=== PATIENT | female | born 1935 | race Caucasian/White ===

== ENCOUNTER 2017-01-23 07:25 | Emergency (ER) | payer MEDICARE ==
[~2017-01-23 07:25] MED LIST: ASPIRIN ADULT L81 M1 PO; BETAPACE80 MG PO; CALCIUM + D3 E1 EACH PO; CARDIZEM CD240 MG PO; COUMADIN3 M1 PO; CRESTOR5 MG PO; ECOTRIN ADULT L81 MG; ECOTRIN81 MG; HIGH POTENCY I134 MG PO; HYDROCODONE BIT1 T11 PO; LATANOPROST2.5 ML OP; Lovenox60 MG/0.6 SC; MOTRIN400 MG PO; PROTONIX40 MG PO; TOPROL XL25 MG; TOPROL XL25 MG PO; TOPROL XL50 MG; TOPROL XL50 MG PO; VITAMIN D50000 I2 PO; WARFARIN SOD5 MG PO; XARE20MG PO; XARELTO10 PO; XARELTO15 M1 PO; ZETIA10 MG; ZETIA10 MG PO
[2017-01-23 08:35] LABS: BASO % 0.3 % (0.0-1.0); EOS # 0.1 10*3/uL (0.0-0.4); HEMATOCRIT 38.1 % (37.0-47.0); HEMOGLOBIN 12.5 g/dl (12.0-16.0); LYMPH # 1.3 10*3/uL (1.3-4.4); LYMPH % 20.7 % (27.0-41.0); MEAN CELL VOLUME 89.6 fl (81.0-99.0); MEAN CORPUSCULAR HGB 29.4 pg (27.0-31.0); MEAN CORPUSCULAR HGB CONC 32.8 g/dl (33.0-37.0); MEAN PLATELET VOLUME 10.8 fl (9.6-12.3); MONO # 0.5 10*3/uL (0.1-1.0); MONO % 8.6 % (3.0-9.0); NEUT # 4.2 10*3/uL (2.3-7.9); NEUT % 69.1 % (47.0-73.0); PLATELET COUNT AUTOMATED 232 10*3/uL (130-400); RED BLOOD COUNT 4.25 10*6/uL (4.10-5.10); RED CELL DISTRI WIDTH 12.9 % (0-14.5)
[2017-01-23] MEDS ORDERED: KEFLEX500 M1 PO (08:51)
== END 2017-01-23 08:56 | disposition home or self-care (01) ==
LOC: ED 07:25
PROVIDERS: Emergency Medicine
DX: R04.0 Epistaxis (principal); I48.91 Unspecified atrial fibrillation; Z91.041 Radiographic dye allergy status; Z79.899 Other long term (current) drug therapy

== ENCOUNTER 2017-05-18 23:53 | Inpatient (IN) | payer MEDICARE ==
[~2017-05-18] VITALS: Ht 167.6 cm; Wt 58.6 kg
--- NOTE | ~2017-05-18 | PR ---
[place], [place] PROGRESS NOTE NAME: MARI OLGUIN [facility] #: [id number] UNIT #: [id number] ROOM: 406 DOCTOR: EDILBERTO MARTELL MD BIRTHDATE: [birth year] DOS: 05/20/2017 SUBJECTIVE: The patient developed acute onset of shortness of breath during the night, became hypoxic, was given 1 dose of Lasix IV 80 mg. She has diuresed nicely. She does complain of continued shortness of breath, abdominal pain and dizziness. OBJECTIVE: VITAL SIGNS: Pressure is 111/69, pulse of 108, respirations 16, temperature 98.0. LUNGS: Diminished breath sounds. HEART: Irregular. ABDOMEN: Soft, scaphoid, nontender. EXTREMITIES: Without any edema. ASSESSMENT AND PLAN: 1. Dizziness with abdominal pain, most likely from underlying severe aortic stenosis. Echocardiogram will be ordered. Discussed with Dr. Beach. If it is critical, the patient will benefit from a cardiac catheterization. Dr. Beach to read the echocardiogram today. 2. Bilateral pleural effusions with acute diastolic congestive heart failure. Again, Lasix was given. The patient to undergo a CT of the chest and abdomen this morning. 3. Chronic atrial fibrillation, controlled on Cardizem. Extra dose of metoprolol was given and she is also on Xarelto, which is continued. Noted the abnormal SGOT, again CT of the abdomen will be done, this could be just a hepatic venous congestion from congestive heart failure. EDILBERTO MARTELL MD CM:PNTRANS 4 [phone] EDILBERTO MARTELL MD 05/20/17899 interface
--- NOTE | ~2017-05-18 | CON ---
[place], [place] RE[facility]ATION [id number] UNIT #: [id number] ROOM: 406 DOCTOR: NELIDA VICTORIA MD BIRTHDATE: [birth year] DOS: 05/20/2017 HISTORY OF PRESENT ILLNESS: This is an 81-year-old -French woman with a history of paroxysmal atrial fibrillation, essential hypertension, hyperlipidemia and some degree of aortic stenosis, who has had GERD as well. She has never had a stroke, heart failure, heart attack and does not remember having had any coronary stents or heart cath. She had come to the hospital because of chest pain, but mostly palpitations. Her heart was beating very fast and she became very weak. She did not have any undue shortness of breath. There was no dizziness or loss of consciousness. She has not had any swelling of the lower extremities recently. She does not have any neurological symptoms, i.e., no symptoms of a stroke. She does not smoke nor does she drink alcoholic beverages. HOME MEDICATIONS: Include Xalatan eyedrops, calcium carbonate, diltiazem 240 daily, ranitidine 150 b.i.d., Xarelto 15 mg daily, simvastatin 5 mg at bedtime and sotalol 40 mg b.i.d. PHYSICAL EXAMINATION: GENERAL: The patient is very pleasant, alert, oriented. VITAL SIGNS: Pulses are now regular at 76 beats per minute, blood pressure 92/73. Previously, she had atrial fibrillation with rapid rate. NECK: Normal JVP. There is a fairly loud left carotid bruit. HEART: Cardiac auscultation, no murmurs or rubs. There is no cardiomegaly. Pedal pulses are palpable, although of somewhat small volume. RESPIRATORY: She is not tachypneic. There is dullness in the right base with reduced adventitious sounds. There are a few crackles in the left lower zone. Chest x-ray demonstrated bilateral pleural effusions, greater on the right side. Troponin I is 0.027 and 0.026 and then 0.05. BUN 16, creatinine 0.81, potassium 4.3. An ECG showed atrial fibrillation with rapid ventricular rate, and left bundle branch block. Monitor now shows sinus rhythm at about 60 beats per minute. IMPRESSION: 1. Paroxysmal atrial fibrillation. She finally returned to normal sinus rhythm. She was on 40 of Betapace b.i.d. It is being increased to 80 mg b.i.d. Her QT interval appears to be okay. 2. There is no clinical evidence of heart failure. 3. She has had chest pain. Left bundle branch is present. It is not clear if she has any underlying coronary artery disease. Dr. Beach had left instruction to have this patient ready for left heart catheterization at [facility] on Tuesday. [place], [place] REPORT OF CONSULTATION NAME: MARI OLGUIN UNIT #: [id number] ROOM: [facility] DOCTOR: NELIDA VICTORIA MD BIRTHDATE: [birth year] RECOMMENDATIONS: Hold Xarelto and increase sotalol to 80 mg b.i.d. I thank you on behalf of Dr. Beach for this consult. NELIDA VICTORIA MD CM:CONSTR:REPORT OF CONSULTATION 1757 05/21/17 0307 interface
--- NOTE | ~2017-05-18 | WRIGHTHP ---
[place], [place] PATIENT HISTORY AND PHYSICAL EXAM NAME: MARI OLGUIN [facility] #: [id number] UNIT #: [id number] ROOM: 406 DOCTOR: HAYLEE VILLASENOR MD BIRTHDATE: [birth year] DOS: 05/19/2017 HISTORY OF PRESENT ILLNESS: 1. The patient is an 81-year-old female with a past medical history of chronic atrial fibrillation, anticoagulated with Xarelto. 2. Benign essential hypertension. 3. Mixed hyperlipidemia. 4. Moderate aortic stenosis. 5. History of colonoscopy with tubular adenoma with low-grade dysplasia in 2014. HOME MEDICATIONS: Xarelto, diltiazem, sotalol, vitamin D, Crestor, latanoprost eye drops. The patient presented to the Emergency Department with dizziness, recurrent chest pain and palpitations. The patient was initially evaluated in the Emergency Department and she was tachycardic. The patient was given intravenous diltiazem, which reduced her heart rate to below 100 beats per minute. The patient was 135 beats per minute in the Emergency Department. After admission, the patient's chest pain have resolved, her cardiac enzymes have been negative and heart rate has improved. The patient is still waiting for her furniture mover driver, Dr. Beach, to see her before we can decide about her future course of treatment. REVIEW OF SYSTEMS: LUNGS: No wheezing or shortness of breath. GASTROINTESTINAL: No nausea, vomiting, diarrhea or constipation. CARDIOVASCULAR: Recurrent chest pain, which have resolved now and palpitations. FAMILY HISTORY: Noncontributory. ALLERGIES: Known allergies to IODINE DYE. PHYSICAL EXAMINATION: GENERAL: Alert and oriented x3, in no visible distress. HEENT AND NECK: Extraocular movements are intact. Sclerae are anicteric. Oral mucosa is moist and clean. No obvious facial weakness. Neck is supple without any lymphadenopathy. No thyromegaly. No JVD. No carotid arterial bruits. LUNGS: Clear to auscultation. No wheezing. No rhonchi. CARDIOVASCULAR SYSTEM: Heart rate was irregularly irregular in rate and rhythm. ABDOMEN: Soft, nontender. No obvious organomegaly. Bowel sounds are present. No obvious herniation. EXTREMITIES: Without significant cyanosis or edema. Warm to touch. CENTRAL NERVOUS SYSTEM: Alert and oriented x3. Cranial nerves II-XII are intact. Speech is normal. The patient is able to move all extremities. Normal muscle strength. Deep tendon reflexes are equal on both sides. Plantars were downgoing. LABORATORY DATA: Cardiac enzymes x3 were negative. Normal serum electrolytes. DICTATION ENDS HERE. [place], [place] PATIENT HISTORY AND PHYSICAL EXAM NAME: MARI OLGUIN UNIT #: [id number] ROOM: [facility] DOCTOR: HAYLEE VILLASENOR MD BIRTHDATE: [birth year] HAYLEE VILLASENOR MD CM:HISPHYS:PATIENT HISTORY AND PHYSICAL EXAMINATION [id number] HAYLEE VILLASENOR MD 05/19/17 2001 interface
--- NOTE | ~2017-05-18 | PR ---
[place], [place] PROGRESS NOTE NAME: MARI OLGUIN UNIT #: [id number] ROOM: [facility] DOCTOR: ALON HOOPER MD, FACC BIRTHDATE: [birth year] DOS: 05/21/2017 CARDIOLOGY PROGRESS NOTE COVERING FOR: Dr. Beach. SUBJECTIVE: The patient did become hypotensive and bradycardia, and ER asked me to advice appropriately. I came and saw the patient. Her blood pressure at one point is 80/46 with a heart rate of 45 and persistently low, hence we cut back on the beta blockers and calcium-channel blockers, and then gave 500 mL bottles and two 250 mL bottles of normal saline, and then at 60 mL an hour. Advised the patient to drink a lot of fluids. The patient came in with left bundle which appears to be chronic and her rapid ventricular response with atrial fibrillation. Her ST changes could be related to myocardial ischemia, her tachycardia secondary to bundle-branch block. The patient came into the emergency room with chest pain progressively increasing and crescendo in nature, and Dr. Paredes has seen the patient for consult for Dr. Beach, and underlying coronary artery disease and ____ the patient to undergo coronary artery, if possible, revascularization on Tuesday, this is Tuesday. Potassium was 3.1 and getting the potassium supplements and calcium is 8. PHYSICAL EXAMINATION: NECK: No jugular venous distension. LUNGS: No rales. HEART: S1 and S2, irregularly irregular. Heart rate is about 50. ABDOMEN: Soft. Color is good. Not diaphoretic. No cyanosis. IMPRESSION: Atrial fibrillation with rapid ventricular response, now bradycardic. Extreme tachy-bradycardia is concerned and evaluation of underlying coronary artery disease if it is related that. Once it is corrected, heart rate may stabilize. Otherwise, one would pay consideration into ____ with extreme tachy-bradycardia with paroxysmal atrial fibrillation. The patient is stable at this time with IV fluids and adjustment of medications. I am seeing this patient for cardiology consult. [place], [place] PROGRESS NOTE NAME: MARI OLGUIN UNIT #: [id number] ROOM: [facility] DOCTOR: ALON HOOPER MD, FACC BIRTHDATE: [birth year] ALON HOOPER MD CM:PNTRANS [phone] ALON HOOPER MD [facility] 05/23/17 1007 interface
--- NOTE | ~2017-05-18 | PR ---
[place], [place] PROGRESS NOTE NAME: MARI OLGUIN UNIT #: [id number] ROOM: 406 DOCTOR: EDILBERTO MARTELL MD BIRTHDATE: [birth year] DOS: 05/21/2017 SUBJECTIVE: The patient is doing fine without any complaints this morning. She did develop some bradycardia during the night and the sotalol and the metoprolol were held. She feels better, but does feel like she still has some chest congestion, coughs up small amounts of white mucus. OBJECTIVE: VITAL SIGNS: Graphic trend shows pressure 198/50, pulse of 59, respirations 16, temperature 97.7. LUNGS: Diminished breath sounds. HEART: Irregular. ABDOMEN: Soft, scaphoid. EXTREMITIES: Without any edema. LABORATORY DATA: Shows glucose of 88, BUN 13, creatinine 0.64. Electrolytes show sodium 137, potassium 3.1, chloride 98, bicarbonate 29. ASSESSMENT AND PLAN: The CT of the chest shows pleural effusions, moderate size with congestive heart failure, spiculated density was noticed on the right upper lobe. This again could be atelectasis. Repeat the CT scan advised in 6 weeks. Echocardiogram shows aortic stenosis, TR, MR and ejection fraction of 20%. ASSESSMENT AND PLAN: 1. Cardiomyopathy with Acute systolic CHF, this could be related to atrial fibrillation with rapid ventricular response, but valvular pathology and coronary artery disease, needs to be ruled out. The patient will go for cardiac catheterization on Tuesday morning, so right now, the patient remains on ERI inhibitors and diuretics, which are being continued. 2. Chronic atrial fibrillation. The Xarelto has been discontinued for the pending procedure. The patient's rate has been controlled and is now on the bradycardic side, so medications are being held sotalol to be decreased, Cardiology following. 3. Bilateral pleural effusions from the underlying CHF. Again, on diuretics. These effusions do not appear to be large enough to have a thoracentesis performed. 4. Spiculated density in the right fissure upper lobe. This again could be atelectasis discussed with the patient's brother, will repeat the CT scan in a few months to see. [place], [place] PROGRESS NOTE NAME: MARI OLGUIN UNIT #: [id number] ROOM: 406 DOCTOR: EDILBERTO MARTELL MD BIRTHDATE: [birth year] EDILBERTO MARTELL MD CM:PNTRANS [phone] EDILBERTO MARTELL MD 05/21/17 1104 interface
--- NOTE | ~2017-05-18 | PR ---
[place], [place] PROGRESS NOTE [id number] #: [id number] ROOM: [facility] DOCTOR: EDILBERTO MARTELL MD BIRTHDATE: [birth year] DOS: SUBJECTIVE: The patient was moved to the ICU during the night when she became hypotensive, was given 2 boluses of 250 mL of saline. This morning, the patient is awake and alert and oriented, without any complaints. She does not have any dizziness or lightheadedness, she is pretty much at her baseline. OBJECTIVE: GENERAL: Graphic trend shows that she is warm and dry. VITAL SIGNS: Blood pressure is 113/53, pulse of 50, respirations 19, temperature 97.9. LUNGS: Diminished breath sounds, few rales heard at the bases. HEART: Irregular. ABDOMEN: Soft, scaphoid. EXTREMITIES: Without any edema. ASSESSMENT AND PLAN: 1. Hypotension, possibly iatrogenic from multiple medications that she is on. We will hold off on the meds and IV fluids were given. 2. Hypokalemia. Yesterday supplementation was given. Labs will be ordered for later today. 3. Chronic atrial fibrillation. Heart rate is controlled on the low side, Xarelto on hold. 4. Critical aortic stenosis with cardiomyopathy and congestive heart failure, so it will be prudent not to give her too much of fluids and awaiting procedure tomorrow. She will be transferred to [place] in the morning. EDILBERTO MARTELL MD CM:PNTRANS [id number] EDILBERTO MARTELL MD 05/22/17 2257 interface
[~2017-05-18 23:53] MED LIST changes: +CARDIZEM CD240 M1 PO; -CARDIZEM CD240 MG PO; +KEFLEX500 M1 PO
[2017-05-18 23:58] VITALS: BP 124/95
[2017-05-19] VITALS (9 sets, daily range): BP systolic 95–112; BP diastolic 60–78
[2017-05-19 00:23] LABS: BASO % 0.5 % (0.0-1.0); EOS % 0.5 % (1.0-4.0); HEMATOCRIT 39.1 % (37.0-47.0); LYMPH # 1.9 10*3/uL (1.3-4.4); LYMPH % 29.1 % (27.0-41.0); MEAN CELL VOLUME 88.5 fl (81.0-99.0); MEAN CORPUSCULAR HGB 29.4 pg (27.0-31.0); MEAN CORPUSCULAR HGB CONC 33.2 g/dl (33.0-37.0); MEAN PLATELET VOLUME 11.4 fl (9.6-12.3); MONO # 0.8 10*3/uL (0.1-1.0); MONO % 12.1 % (3.0-9.0); NEUT # 3.8 10*3/uL (2.3-7.9); NEUT % 57.6 % (47.0-73.0); PLATELET COUNT AUTOMATED 205 10*3/uL (130-400); RED BLOOD COUNT 4.42 10*6/uL (4.10-5.10); RED CELL DISTRI WIDTH 12.4 % (0-14.5); WHITE BLOOD COUNT 6.5 10*3/uL (4.8-10.8)
[2017-05-19 00:34] LABS: INTERNATIONAL NORM RATIO 1.2 (2.0-3.5); PROTHROMBIN TIME 12.9 SECONDS (8.9-12.2)
[2017-05-19 00:40] LABS: ALBUMIN 3.5 gm/dl (3.1-4.5); ALKALINE PHOSPHATASE 103 U/L (45-117); BILIRUBIN, TOTAL 0.6 mg/dl (0.2-1.0); BUN 16 mg/dl (7-24); CARBON DIOXIDE 24 mmol/L (21-32); CHLORIDE 104 mmol/L (98-107); EST GLOM FILT AFRICAN AMERICAN > 60 ml/min; GLUCOSE 105 mg/dL (65-99); MAGNESIUM 2.1 mg/dL (1.5-2.1); POTASSIUM 4.3 mmol/L (3.5-5.1); SGOT/AST 59 IU/L (3-35); SGPT/ALT 73 U/L (12-78); SODIUM 134 mmol/L (136-145); TOTAL PROTEIN 7.4 gm/dL (6.4-8.2); TROPONIN I 0.018 ng/ml (<0.045)
[2017-05-19] MEDS ORDERED: ZOCOR5 MG PO (03:17)
[2017-05-19] MEDS ORDERED: ZANTAC 150150 MG PO (03:17)
[2017-05-19] MEDS ORDERED: XALATAN 0.005%2.5 ML INTRAOC (03:19)
[2017-05-19] MEDS ORDERED: DOCUSATE SODIU100 M3 PO (03:20)
[2017-05-19] MEDS ORDERED: CALCIUM 600 +1 EAC8 PO (03:21)
[2017-05-19 06:24] LABS: CKMB 1.2 ng/ml (0.5-3.6)
[2017-05-19 14:25] LABS: TROPONIN I 0.022 ng/ml (<0.045)
[2017-05-19 14:26] LABS: CKMB < 0.5 ng/ml (0.5-3.6); CPK 62 U/L (26-192)
[2017-05-19 22:25] LABS: TROPONIN I 0.018 ng/ml (<0.045)
[2017-05-19 22:26] LABS: CKMB 0.6 ng/ml (0.5-3.6)
[2017-05-20] VITALS: BP 111/69
[2017-05-20 08:00] VITALS: BP 129/77
[2017-05-20 12:00] VITALS: BP 92/73
[2017-05-20 16:00] VITALS: BP 120/57
[2017-05-20 20:00] VITALS: BP 102/62
[2017-05-21] VITALS (7 sets, daily range): BP systolic 80–106; BP diastolic 46–70
[2017-05-21 06:43] LABS: BUN 13 mg/dl (7-24); CARBON DIOXIDE 29 mmol/L (21-32); CHLORIDE 98 mmol/L (98-107); EST GLOM FILT AFRICAN AMERICAN > 60 ml/min; GLUCOSE 88 mg/dL (65-99); POTASSIUM 3.1 mmol/L (3.5-5.1); SODIUM 137 mmol/L (136-145)
[2017-05-22] VITALS (8 sets, daily range): BP systolic 80–122; BP diastolic 40–71
[2017-05-22 08:06] LABS: BASO % 0.3 % (0.0-1.0); EOS # 0.1 10*3/uL (0.0-0.4); EOS % 1.3 % (1.0-4.0); HEMATOCRIT 35.7 % (37.0-47.0); HEMOGLOBIN 11.9 g/dl (12.0-16.0); LYMPH # 1.5 10*3/uL (1.3-4.4); LYMPH % 21.3 % (27.0-41.0); MEAN CELL VOLUME 89.9 fl (81.0-99.0); MEAN CORPUSCULAR HGB CONC 33.3 g/dl (33.0-37.0); MEAN PLATELET VOLUME 10.8 fl (9.6-12.3); MONO % 14.1 % (3.0-9.0); NEUT # 4.5 10*3/uL (2.3-7.9); NEUT % 62.9 % (47.0-73.0); PLATELET COUNT AUTOMATED 210 10*3/uL (130-400); RED BLOOD COUNT 3.97 10*6/uL (4.10-5.10); RED CELL DISTRI WIDTH 12.5 % (0-14.5); WHITE BLOOD COUNT 7.2 10*3/uL (4.8-10.8)
[2017-05-22 08:22] LABS: ALBUMIN 3.1 gm/dl (3.1-4.5); ALKALINE PHOSPHATASE 98 U/L (45-117); BILIRUBIN, TOTAL 0.6 mg/dl (0.2-1.0); BUN 10 mg/dl (7-24); CARBON DIOXIDE 28 mmol/L (21-32); CHLORIDE 106 mmol/L (98-107); EST GLOM FILT AFRICAN AMERICAN > 60 ml/min; GLUCOSE 96 mg/dL (65-99); POTASSIUM 3.8 mmol/L (3.5-5.1); SGOT/AST 22 IU/L (3-35); SGPT/ALT 54 U/L (12-78); SODIUM 140 mmol/L (136-145); TOTAL PROTEIN 6.7 gm/dL (6.4-8.2)
[2017-05-23] VITALS: BP 113/69
[2017-05-23 04:00] VITALS: BP 107/62
[2017-05-23 08:00] VITALS: BP 116/70
== END 2017-05-23 07:48 | disposition short-term general hospital (02) | DRG 308 ==
LOC: ED 23:53 → 4E 05-19 02:02 → ICCU 05-22 01:00
PROVIDERS: Emergency Medicine Emergency Medical Services; Internal Medicine
DX: I48.0 Paroxysmal atrial fibrillation (principal); J96.01 Acute respiratory failure with hypoxia; I50.41 Acute combined systolic (congestive) and diastolic (congestive) heart failure; I95.9 Hypotension, unspecified; I11.0 Hypertensive heart disease with heart failure; I35.0 Nonrheumatic aortic (valve) stenosis; I42.9 Cardiomyopathy, unspecified; K21.9 Gastro-esophageal reflux disease without esophagitis; E87.6 Hypokalemia; E78.2 Mixed hyperlipidemia; Z79.2 Long term (current) use of antibiotics; Z79.899 Other long term (current) drug therapy; Z91.041 Radiographic dye allergy status; I44.7 Left bundle-branch block, unspecified; I25.10 Atherosclerotic heart disease of native coronary artery without angina pectoris

== ENCOUNTER → 2017-08-09 | Outpatient (CLI) | payer MEDICARE ==
[~2017-08-09] MED LIST changes: +CALCIUM 600 +1 EAC8 PO; +DOCUSATE SODIU100 M3 PO; +XALATAN 0.005%2.5 ML INTRAOC; +ZANTAC 150150 MG PO; +ZOCOR5 MG PO
[2017-08-09 14:49] LABS: INTERNATIONAL NORM RATIO 1.8 (2.0-3.5)
== END | disposition home or self-care (01) ==
LOC: LAB 14:15
PROVIDERS: Internal Medicine
DX: Z79.01 Long term (current) use of anticoagulants (principal)

== ENCOUNTER → 2017-08-31 | Outpatient (CLI) | payer MEDICARE ==
[2017-08-31 13:52] LABS: INTERNATIONAL NORM RATIO 1.6 (2.0-3.5)
== END | disposition home or self-care (01) ==
LOC: LAB 13:07
PROVIDERS: Internal Medicine Cardiovascular Disease
DX: Z79.01 Long term (current) use of anticoagulants (principal)

== ENCOUNTER → 2017-09-07 | Outpatient (CLI) | payer MEDICARE ==
[2017-09-07 10:26] LABS: INTERNATIONAL NORM RATIO 1.7 (2.0-3.5)
== END ==
LOC: LAB 09:23
PROVIDERS: Internal Medicine Cardiovascular Disease
DX: Z79.01 Long term (current) use of anticoagulants (principal)

== ENCOUNTER → 2017-09-14 | Outpatient (CLI) | payer MEDICARE ==
[2017-09-14 10:14] LABS: INTERNATIONAL NORM RATIO 1.5 (2.0-3.5)
== END | disposition home or self-care (01) ==
LOC: LAB 09:16
PROVIDERS: Internal Medicine Cardiovascular Disease
DX: Z79.01 Long term (current) use of anticoagulants (principal)

== ENCOUNTER → 2017-09-28 | Outpatient (CLI) | payer MEDICARE ==
[2017-09-28 10:27] LABS: INTERNATIONAL NORM RATIO 1.6 (2.0-3.5)
== END | disposition home or self-care (01) ==
LOC: LAB 08:31
PROVIDERS: Internal Medicine Cardiovascular Disease
DX: Z51.81 Encounter for therapeutic drug level monitoring (principal); Z79.01 Long term (current) use of anticoagulants

== ENCOUNTER → 2017-10-12 | Outpatient (CLI) | payer MEDICARE ==
[2017-10-12 08:40] LABS: INTERNATIONAL NORM RATIO 1.8 (2.0-3.5)
== END | disposition home or self-care (01) ==
LOC: LAB 08:12
PROVIDERS: Internal Medicine Cardiovascular Disease
DX: Z51.81 Encounter for therapeutic drug level monitoring (principal); Z79.01 Long term (current) use of anticoagulants

== ENCOUNTER → 2017-11-09 | Outpatient (CLI) | payer MEDICARE | END | disposition home or self-care (01) | LOC: LAB 09:26 | PROVIDERS: Internal Medicine Cardiovascular Disease | DX: Z79.01 Long term (current) use of anticoagulants (principal) ==

== ENCOUNTER → 2017-12-07 | Outpatient (CLI) | payer MEDICARE ==
[2017-12-07 08:43] LABS: BASO % 0.4 % (0.0-1.0); EOS # 0.1 10*3/uL (0.0-0.4); HEMATOCRIT 39.1 % (37.0-47.0); HEMOGLOBIN 12.6 g/dl (12.0-16.0); LYMPH # 1.3 10*3/uL (1.3-4.4); LYMPH % 26.3 % (27.0-41.0); MEAN CELL VOLUME 90.3 fl (81.0-99.0); MEAN CORPUSCULAR HGB 29.1 pg (27.0-31.0); MEAN CORPUSCULAR HGB CONC 32.2 g/dl (33.0-37.0); MEAN PLATELET VOLUME 10.1 fl (9.6-12.3); MONO # 0.6 10*3/uL (0.1-1.0); NEUT # 3.1 10*3/uL (2.3-7.9); NEUT % 61.1 % (47.0-73.0); PLATELET COUNT AUTOMATED 201 10*3/uL (130-400); RED BLOOD COUNT 4.33 10*6/uL (4.10-5.10)
[2017-12-07 09:06] LABS: ALBUMIN 3.7 gm/dl (3.1-4.5); ALKALINE PHOSPHATASE 74 U/L (45-117); BUN 16 mg/dl (7-24); CHLORIDE 104 mmol/L (98-107); CHOLESTEROL 149 mg/dL (<200); CREATININE 0.75 mg/dL (0.55-1.02); HDL CHOLESTEROL 72 mg/dl (40-60); LDL CHOLESTEROL 65 mg/dL (9-159); POTASSIUM 4.3 mmol/L (3.5-5.1); SGOT/AST 28 IU/L (3-35); SGPT/ALT 41 U/L (12-78); SODIUM 141 mmol/L (136-145); TOTAL PROTEIN 7.4 gm/dL (6.4-8.2); TRIGLYCERIDES 60 mg/dl (<150); VLDL CHOLESTEROL 12 mg/dL (6-40)
[2017-12-07 09:12] LABS: FREE T4 0.95 ng/dl (0.76-1.46)
[2017-12-07 10:03] LABS: VITAMIN D, 25-HYDROXY 28.1 ng/mL (30-100)
== END | disposition home or self-care (01) ==
LOC: LAB 08:16
PROVIDERS: Internal Medicine Cardiovascular Disease
DX: Z13.21 Encounter for screening for nutritional disorder (principal); Z13.220 Encounter for screening for lipoid disorders; Z13.1 Encounter for screening for diabetes mellitus; R53.1 Weakness; E78.2 Mixed hyperlipidemia; E55.9 Vitamin D deficiency, unspecified; E11.9 Type 2 diabetes mellitus without complications; Z79.01 Long term (current) use of anticoagulants

== ENCOUNTER 2017-12-14 00:03 | Emergency (ER) | payer MEDICARE ==
[~2017-12-14] VITALS: Ht 167.6 cm; Wt 56.7 kg
[2017-12-14] MEDS ORDERED: COUMADIN5 M2 PO (00:12)
[2017-12-14] MEDS ORDERED: ASPIRIN CHEWABL81 MG PO (00:13)
[2017-12-14 00:46] LABS: BASO % 0.6 % (0.0-1.0); EOS # 0.1 10*3/uL (0.0-0.4); EOS % 2.5 % (1.0-4.0); HEMATOCRIT 37.8 % (37.0-47.0); HEMOGLOBIN 12.1 g/dl (12.0-16.0); LYMPH # 1.6 10*3/uL (1.3-4.4); MEAN CELL VOLUME 90.2 fl (81.0-99.0); MEAN CORPUSCULAR HGB 28.9 pg (27.0-31.0); MEAN PLATELET VOLUME 10.3 fl (9.6-12.3); MONO # 0.7 10*3/uL (0.1-1.0); MONO % 13.1 % (3.0-9.0); NEUT # 2.8 10*3/uL (2.3-7.9); NEUT % 53.8 % (47.0-73.0); PLATELET COUNT AUTOMATED 201 10*3/uL (130-400); RED BLOOD COUNT 4.19 10*6/uL (4.10-5.10); RED CELL DISTRI WIDTH 14.1 % (0-14.5); WHITE BLOOD COUNT 5.3 10*3/uL (4.8-10.8)
[2017-12-14 00:57] LABS: INTERNATIONAL NORM RATIO 1.9 (2.0-3.5)
[2017-12-14 01:03] LABS: ALBUMIN 3.5 gm/dl (3.1-4.5); ALKALINE PHOSPHATASE 79 U/L (45-117); BUN 21 mg/dl (7-24); CHLORIDE 102 mmol/L (98-107); CREATININE 0.76 mg/dL (0.55-1.02); POTASSIUM 3.8 mmol/L (3.5-5.1); SGOT/AST 25 IU/L (3-35); SGPT/ALT 47 U/L (12-78); SODIUM 140 mmol/L (136-145); TOTAL PROTEIN 7.1 gm/dL (6.4-8.2)
== END 2017-12-14 01:41 | disposition home or self-care (01) ==
LOC: ED 00:03
PROVIDERS: Nurse Practitioner
DX: R04.0 Epistaxis (principal); I48.91 Unspecified atrial fibrillation; Z79.899 Other long term (current) drug therapy; Z79.02 Long term (current) use of antithrombotics/antiplatelets; Z79.82 Long term (current) use of aspirin; Z88.6 Allergy status to analgesic agent

== ENCOUNTER 2018-01-02 08:32 | Emergency (ER) | payer MEDICARE ==
[~2018-01-02] VITALS: Wt 55.3 kg
[~2018-01-02 08:32] MED LIST changes: +ASPIRIN CHEWABL81 MG PO; +COUMADIN5 M2 PO
[2018-01-02 08:51] LABS: BASO % 0.8 % (0.0-1.0); EOS # 0.1 10*3/uL (0.0-0.4); EOS % 1.3 % (1.0-4.0); HEMATOCRIT 40.2 % (37.0-47.0); HEMOGLOBIN 12.7 g/dl (12.0-16.0); LYMPH # 1.4 10*3/uL (1.3-4.4); LYMPH % 26.8 % (27.0-41.0); MEAN CELL VOLUME 91.2 fl (81.0-99.0); MEAN CORPUSCULAR HGB 28.8 pg (27.0-31.0); MEAN CORPUSCULAR HGB CONC 31.6 g/dl (33.0-37.0); MEAN PLATELET VOLUME 9.8 fl (9.6-12.3); MONO # 0.6 10*3/uL (0.1-1.0); MONO % 10.9 % (3.0-9.0); NEUT # 3.1 10*3/uL (2.3-7.9); PLATELET COUNT AUTOMATED 224 10*3/uL (130-400); RED BLOOD COUNT 4.41 10*6/uL (4.10-5.10); RED CELL DISTRI WIDTH 13.5 % (0-14.5); WHITE BLOOD COUNT 5.2 10*3/uL (4.8-10.8)
[2018-01-02 09:00] LABS: ACT PARTIAL THROMBO TIME 32.2 SECONDS (20.8-31.5); INTERNATIONAL NORM RATIO 2.1 (2.0-3.5)
[2018-01-02 09:02] LABS: BUN 19 mg/dl (7-24); CHLORIDE 103 mmol/L (98-107); CREATININE 0.74 mg/dL (0.55-1.02); POTASSIUM 4.5 mmol/L (3.5-5.1); SODIUM 139 mmol/L (136-145)
== END 2018-01-02 10:37 | disposition home or self-care (01) ==
LOC: ED 08:32
PROVIDERS: Emergency Medicine
DX: R04.0 Epistaxis (principal); D68.32 Hemorrhagic disorder due to extrinsic circulating anticoagulants; I48.91 Unspecified atrial fibrillation; Z79.82 Long term (current) use of aspirin; Z90.710 Acquired absence of both cervix and uterus; Z79.01 Long term (current) use of anticoagulants; Z88.8 Allergy status to other drugs, medicaments and biological substances

== ENCOUNTER → 2018-01-17 | Outpatient (CLI) | payer MEDICARE ==
[2018-01-17 09:50] LABS: INTERNATIONAL NORM RATIO 1.7 (2.0-3.5)
== END | disposition home or self-care (01) ==
LOC: LAB 08:56
PROVIDERS: Internal Medicine Cardiovascular Disease
DX: Z51.81 Encounter for therapeutic drug level monitoring (principal); Z79.01 Long term (current) use of anticoagulants

== ENCOUNTER → 2018-01-31 | Outpatient (CLI) | payer MEDICARE ==
[2018-01-31 10:45] LABS: INTERNATIONAL NORM RATIO 1.8 (2.0-3.5)
== END | disposition home or self-care (01) ==
LOC: LAB 09:50
PROVIDERS: Internal Medicine Cardiovascular Disease
DX: Z51.81 Encounter for therapeutic drug level monitoring (principal); Z79.01 Long term (current) use of anticoagulants

== ENCOUNTER → 2018-02-14 | Outpatient (CLI) | payer MEDICARE ==
[2018-02-14 09:27] LABS: BASO % 0.4 % (0.0-1.0); EOS % 0.8 % (1.0-4.0); HEMATOCRIT 42.6 % (37.0-47.0); HEMOGLOBIN 13.5 g/dl (12.0-16.0); LYMPH # 1.4 10*3/uL (1.3-4.4); LYMPH % 27.2 % (27.0-41.0); MEAN CELL VOLUME 91.6 fl (81.0-99.0); MEAN CORPUSCULAR HGB CONC 31.7 g/dl (33.0-37.0); MEAN PLATELET VOLUME 10.7 fl (9.6-12.3); MONO # 0.5 10*3/uL (0.1-1.0); MONO % 9.8 % (3.0-9.0); NEUT # 3.3 10*3/uL (2.3-7.9); NEUT % 61.6 % (47.0-73.0); PLATELET COUNT AUTOMATED 227 10*3/uL (130-400); RED BLOOD COUNT 4.65 10*6/uL (4.10-5.10); RED CELL DISTRI WIDTH 12.5 % (0-14.5); WHITE BLOOD COUNT 5.3 10*3/uL (4.8-10.8)
[2018-02-14 09:42] LABS: ALBUMIN 3.8 gm/dl (3.1-4.5); BUN 15 mg/dl (7-24); CHLORIDE 102 mmol/L (98-107); CHOLESTEROL 170 mg/dL (<200); CREATININE 0.81 mg/dL (0.55-1.02); POTASSIUM 4.1 mmol/L (3.5-5.1); SGOT/AST 28 IU/L (3-35); SGPT/ALT 36 U/L (12-78); SODIUM 140 mmol/L (136-145); TRIGLYCERIDES 70 mg/dl (<150); VLDL CHOLESTEROL 14 mg/dL (6-40)
[2018-02-14 09:44] LABS: INTERNATIONAL NORM RATIO 1.7 (2.0-3.5)
[2018-02-14 09:49] LABS: ALKALINE PHOSPHATASE 81 U/L (45-117); FREE T4 0.92 ng/dl (0.76-1.46); HDL CHOLESTEROL 74 mg/dl (40-60); LDL CHOLESTEROL 82 mg/dL (9-159); TOTAL PROTEIN 7.8 gm/dL (6.4-8.2)
[2018-02-14 11:00] LABS: VITAMIN D, 25-HYDROXY 25.6 ng/mL (30-100)
== END | disposition home or self-care (01) ==
LOC: LAB 08:45
PROVIDERS: Internal Medicine Cardiovascular Disease
DX: R53.81 Other malaise (principal); E78.2 Mixed hyperlipidemia; E55.9 Vitamin D deficiency, unspecified; Z13.1 Encounter for screening for diabetes mellitus; Z13.21 Encounter for screening for nutritional disorder; Z13.220 Encounter for screening for lipoid disorders; Z00.00 Encounter for general adult medical examination without abnormal findings; Z79.01 Long term (current) use of anticoagulants

== ENCOUNTER → 2018-02-28 | Outpatient (CLI) | payer MEDICARE ==
[2018-02-28 09:44] LABS: INTERNATIONAL NORM RATIO 2.1 (2.0-3.5)
== END ==
LOC: LAB 08:32
PROVIDERS: Internal Medicine Cardiovascular Disease
DX: Z51.81 Encounter for therapeutic drug level monitoring (principal); Z79.01 Long term (current) use of anticoagulants

== ENCOUNTER → 2018-03-14 | Outpatient (CLI) | payer MEDICARE ==
[2018-03-14 12:03] LABS: INTERNATIONAL NORM RATIO 2.1 (2.0-3.5)
== END | disposition home or self-care (01) ==
LOC: LAB 09:41
PROVIDERS: Internal Medicine Cardiovascular Disease
DX: Z51.81 Encounter for therapeutic drug level monitoring (principal); Z79.01 Long term (current) use of anticoagulants

== ENCOUNTER → 2018-04-11 | Outpatient (CLI) | payer MEDICARE ==
[2018-04-11 09:29] LABS: INTERNATIONAL NORM RATIO 2.1 (2.0-3.5)
== END | disposition home or self-care (01) ==
LOC: LAB 08:35
PROVIDERS: Internal Medicine Cardiovascular Disease
DX: Z51.81 Encounter for therapeutic drug level monitoring (principal); Z79.01 Long term (current) use of anticoagulants

== ENCOUNTER → 2018-05-09 | Outpatient (CLI) | payer MEDICARE ==
[2018-05-09 10:48] LABS: INTERNATIONAL NORM RATIO 1.9 (2.0-3.5)
== END | disposition home or self-care (01) ==
LOC: LAB 09:44
PROVIDERS: Internal Medicine Cardiovascular Disease
DX: Z51.81 Encounter for therapeutic drug level monitoring (principal); Z79.01 Long term (current) use of anticoagulants

== ENCOUNTER → 2018-07-05 | Day surgery (SDC) | payer MEDICARE ==
[~2018-07-05] VITALS: Ht 167.6 cm; Wt 56.7 kg
[~2018-07-05] MED LIST changes: +BRIMONIDINE TAR10 ML OPH; +K-TAB20 MEQ PO; +LASIX20 MG PO; +LATANOPROST2.5 ML IO; +OMEPRAZOLE20 M2 PO
--- NOTE | ~2018-07-05 | O ---
[place], [place] OPERATIVE NOTE NAME: MARI OLGUIN UNIT #: [id number] ROOM: DOCTOR: SAMINA RIVERA,RUEL BIRTHDATE: [birth year] DOS: 07/05/2018 GASTROENDOSCOPIC REPORT HISTORY OF PRESENT ILLNESS: An 82-year-old patient, who was presented with solid food dysphagia, undergoing investigation. PAST MEDICAL HISTORY: Hypercholesterolemia and hypertension. PAST SURGICAL HISTORY: Aortic valve, pacemaker, and heart ablation. ALLERGIES: No known medication. SOCIAL HISTORY: The patient is a nonsmoker, nonalcohol consumer. FAMILY HISTORY: Noncontributory. PROCEDURE: Today's procedure part of investigation is panendoscopy plus biopsy plus balloon dilation of esophagus. PREMEDICATION: Propofol. SCOPE: Olympus forward-viewing gastroscope Q10 video. REPORT: After putting the patient in left lateral position and application of lubricant to the scope, the scope was introduced. Thereafter, under direct visualization, I advanced through the length of esophagus without difficulty. Esophagus cervicothoracic distally carefully examined. Gastric pouch was entered. Evidence of gastritis was seen. Duodenal bulb, second and third part within normal limits. Antral biopsy obtained for H. pylori. Scope was gently flexed, small hiatal hernia confirmed, photographed. Scope was gradually withdrawn back to the distal esophagus. Benign distal esophageal stricture was identified as well as upper esophagus. A balloon size 18 was swept throughout the length of the esophagus. The patient extubated, tolerated procedure well. IMPRESSION: Benign esophageal stricture, status post balloon dilation to size 18. PLAN AND DISCUSSION: We are going to keep the patient on omeprazole 20 mg 1 daily and clinical reassessment. Soft diet. Elevation of the head of the bed 6 inch all time. Followup routinely with you in office with us p.r.n. Thank you again for your kind referral. [place], [place] OPERATIVE NOTE NAME: MARI OLGUIN UNIT #: [id number] ROOM: DOCTOR: SAMINA RIVERA,RUEL BIRTHDATE: [birth year] RUEL HAAS MD CM:OPRECORD:OPERATIVE NOTE [id number] RUEL HAAS MD 07/05/18 0859 interface
[2018-07-05 06:30] VITALS: BP 193/77
[2018-07-05 08:31] VITALS: BP 123/74
[2018-07-05 08:40] VITALS: BP 133/73
[2018-07-05 09:00] VITALS: BP 136/79
== END | disposition home or self-care (01) ==
LOC: SDC 06-30 08:00
DX: K22.2 Esophageal obstruction (principal); K29.50 Unspecified chronic gastritis without bleeding; K44.9 Diaphragmatic hernia without obstruction or gangrene; B96.81 Helicobacter pylori [H. pylori] as the cause of diseases classified elsewhere; I10 Essential (primary) hypertension; E78.00 Pure hypercholesterolemia, unspecified; I48.91 Unspecified atrial fibrillation; K21.9 Gastro-esophageal reflux disease without esophagitis; H40.9 Unspecified glaucoma; Z95.0 Presence of cardiac pacemaker; Z98.890 Other specified postprocedural states; Z95.4 Presence of other heart-valve replacement; Z98.42 Cataract extraction status, left eye; Z98.41 Cataract extraction status, right eye; Z91.041 Radiographic dye allergy status; Z91.048 Other nonmedicinal substance allergy status; Z91.09 Other allergy status, other than to drugs and biological substances; Z90.710 Acquired absence of both cervix and uterus; Z79.899 Other long term (current) drug therapy; Z87.11 Personal history of peptic ulcer disease; Z80.9 Family history of malignant neoplasm, unspecified

== ENCOUNTER → 2018-07-13 | Outpatient (CLI) | payer MEDICARE | END | disposition home or self-care (01) | LOC: LAB 09:30 | PROVIDERS: Internal Medicine Cardiovascular Disease | DX: Z51.81 Encounter for therapeutic drug level monitoring (principal); Z79.01 Long term (current) use of anticoagulants ==

== ENCOUNTER → 2018-08-24 | Outpatient (CLI) | payer MEDICARE ==
[2018-08-24 10:40] LABS: INTERNATIONAL NORM RATIO 2.4 (2.0-3.5)
== END | disposition home or self-care (01) ==
LOC: LAB 10:12
PROVIDERS: Internal Medicine Cardiovascular Disease
DX: Z79.01 Long term (current) use of anticoagulants (principal)

== ENCOUNTER → 2018-08-31 | Outpatient (CLI) | payer MEDICARE | END | disposition home or self-care (01) | LOC: RAD 11:14 | DX: M17.12 Unilateral primary osteoarthritis, left knee (principal); Z91.81 History of falling ==

== ENCOUNTER → 2018-09-21 | Outpatient (CLI) | payer MEDICARE ==
[2018-09-21 14:29] LABS: INTERNATIONAL NORM RATIO 2.4 (2.0-3.5)
== END | disposition home or self-care (01) ==
LOC: LAB 13:25
PROVIDERS: Internal Medicine Cardiovascular Disease
DX: Z79.01 Long term (current) use of anticoagulants (principal)

== ENCOUNTER → 2018-10-19 | Outpatient (CLI) | payer MEDICARE ==
[2018-10-19 10:43] LABS: INTERNATIONAL NORM RATIO 2.2 (2.0-3.5)
== END | disposition home or self-care (01) ==
PROVIDERS: Internal Medicine Cardiovascular Disease
DX: Z79.01 Long term (current) use of anticoagulants (principal)

== ENCOUNTER → 2018-11-16 | Outpatient (CLI) | payer MEDICARE ==
[2018-11-16 11:48] LABS: INTERNATIONAL NORM RATIO 1.9 (2.0-3.5)
== END | disposition home or self-care (01) ==
LOC: LAB 10:39
PROVIDERS: Internal Medicine Cardiovascular Disease
DX: Z79.01 Long term (current) use of anticoagulants (principal)

== ENCOUNTER → 2018-11-30 | Outpatient (CLI) | payer MEDICARE ==
[2018-11-30 12:55] LABS: INTERNATIONAL NORM RATIO 1.9 (2.0-3.5)
== END | disposition home or self-care (01) ==
LOC: LAB 11:40
PROVIDERS: Internal Medicine Cardiovascular Disease
DX: Z79.01 Long term (current) use of anticoagulants (principal)